=== PATIENT | male | born 1970 | race Hispanic/Latino ===

== ENCOUNTER 2022-12-24 19:17 | Emergency (ER) | payer BC ==
[~2022-12-24] VITALS: Ht 175.3 cm; Wt 91.2 kg
[2022-12-24] MEDS ORDERED: DiphenhydrAMINE HCL 50 MG/ML VIAL IM ONE (21:00)
[2022-12-24] MEDS ORDERED: DEXAMETHASONE SOD PHOSPHATE 4 MG/ML 1ML VIAL IM ONE (21:00)
[2022-12-24] MEDS ORDERED: FAMOTIDINE 20MG TAB PO ONE (21:00)
[2022-12-24] MEDS ORDERED: HYDR-3421 PO (21:17)
[2022-12-24] MEDS ORDERED: METH4TAB3 PO (21:17)
[2022-12-24] MEDS ORDERED: FAMO-136 PO (21:17)
[2022-12-24 21:45] VITALS: BP 129/72
== END 2022-12-24 21:49 | disposition home or self-care (01) ==
LOC: EDH 19:17
DX: L50.0 Allergic urticaria (principal); Z88.6 Allergy status to analgesic agent; Z88.8 Allergy status to other drugs, medicaments and biological substances; Z79.899 Other long term (current) drug therapy
CPT/HCPCS: 99284; 96372 ×2; J1100; J1200

== ENCOUNTER 2023-04-10 19:09 | Emergency (ER) | payer BC ==
[~2023-04-10 19:09] MED LIST: FAMO-136 PO; HYDR-3421 PO; METH4TAB3 PO
== END 2023-04-10 20:48 | disposition left against medical advice (07) ==
LOC: EDH 19:09
DX: R51.9 Headache, unspecified (principal); R42 Dizziness and giddiness; Z53.21 Procedure and treatment not carried out due to patient leaving prior to being seen by health care provider

== ENCOUNTER 2024-06-21 09:14 | Emergency (ER) | payer BC ==
[~2024-06-21] VITALS: Ht 170.2 cm; Wt 84.4 kg
[2024-06-21 09:35] LABS: BASOPHILS # (AUTO) 0.02 K/uL (0.00-0.20); BASOPHILS % (AUTO) 0.2 % (0.0-5.0); EOSINOPHILS # (AUTO) 0.29 K/uL (0.00-0.70); EOSINOPHILS % (AUTO) 3.2 % (0.0-8.0); HEMATOCRIT 47.2 % (42-54); IMMATURE GRANULOCYTE ABSOLUTE 0.04 K/uL (0-1); LYMPHOCYTES % (AUTO) 21.8 % (21.0-51.0); MEAN CORPUSCULAR HEMOGLOBIN 28.7 pg (27.0-33.0); MEAN CORPUSCULAR VOLUME 82.2 fL (79-99); MONOCYTES # (AUTO) 0.7 K/uL (0.1-1.0); MONOCYTES % (AUTO) 7.3 % (3.0-13.0); NEUTROPHILS # (AUTO) 6.1 K/uL (1.8-7.7); NEUTROPHILS % (AUTO) 67.1 % (40.0-77.0); PLATELET COUNT (AUTO) 248 K/uL (130-400); RED BLOOD CELL COUNT(AUTO) 5.74 MIL/uL (4.50-6.20); RED CELL DISTRIBUTION WIDTH 13.2 % (11.0-15.5); WHITE BLOOD COUNT (AUTO) 9.2 K/uL (4.8-10.8)
[2024-06-21 09:47] LABS: INR 0.98 (0.85-1.15); PROTHROMBIN TIME 10.6 SEC (9.6-11.6)
[2024-06-21 09:48] LABS: PARTIAL THROMBOPLASTIN TIME 26.8 SEC (26.3-35.5)
[2024-06-21] MEDS: hydrALAZine 20MG/ML VIAL IV ONE (09:50)
[2024-06-21 10:24] LABS: B-TYPE NATRIURETIC PEPTIDE 5 pg/mL (0-100)
[2024-06-21 14:12] LABS: APPEARANCE,URINE CLEAR (CLEAR); BILIRUBIN,URINE NEGATIVE (NEGATIVE); COLOR,URINE LIGHT-YELLOW (YELLOW); GLUCOSE, URINE (UA) NEGATIVE (NEGATIVE); KETONES,URINE NEGATIVE (NEGATIVE); LEUKOCYTE ESTERASE ,URINE NEGATIVE Leu/uL (NEGATIVE); NITRATE,URINE NEGATIVE (NEGATIVE); OCCULT BLOOD,URINE NEGATIVE (NEGATIVE); PROTEIN,URINE NEGATIVE (NEGATIVE); UROBILINOGEN,URINE 0.2 mg/dL (0.2-1.0)
[2024-06-21 14:28] LABS: ADD UA MICROSCOPIC NO
[2024-06-21 14:31] VITALS: BP 127/75; PULSE 90; RESP 18; TEMP 97.8; O2SAT 96
== END 2024-06-21 15:00 | disposition short-term general hospital (02) ==
LOC: EDH 09:14
DX: G45.9 Transient cerebral ischemic attack, unspecified (principal); I63.9 Cerebral infarction, unspecified; I10 Essential (primary) hypertension; Z79.899 Other long term (current) drug therapy; Z88.6 Allergy status to analgesic agent; Z88.8 Allergy status to other drugs, medicaments and biological substances
CPT/HCPCS: 99291; 96374; 70450; 82550; 83721; 84484; 80048; 83880; 85025; 85610; 85730; 82948; 81003; 36415; 71045; 93005; J0360